=== PATIENT | female | born 2000 | race African-American/Black ===

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

== ENCOUNTER → 2018-04-10 | Outpatient (CLI) | payer OTHER ==
--- NOTE | 2016-04-10 20:58 | US ---
EXAMINATION TYPE: US pelvic complete DATE OF EXAM: 04/10/2016 5:00 PM COMPARISON: no previous CLINICAL HISTORY: US. Pelvic and lower back pain x 2 months, abnormal cycles TECHNIQUE: Transabdominal (TA) Date of LMP: patient unsure EXAM MEASUREMENTS: Uterus: 6.5 x 2.3 x 3.4cm Endometrial Stripe: 0.3cm Right Ovary: 2.6 x 2.9 x 1.6cm Left Ovary: 2.5 x 2.2 x 1.4cm FINDINGS: 1. Uterus: wnl 2. Endometrium: appears wnl 3. Right Ovary: wnl 4. Left Ovary: wnl 5. Bilateral Adnexa: wnl 6. Posterior cul-de-sac: small amount of free fluid seen IMPRESSION: There is a trace amount of free fluid in the cul-de-sac that is probably physiologic. No adnexal mass. Normal uterus and endometrium. Normal Values: Uterine Length: < 10cm Endometrium: Proliferative (Day 6 ? 14): 4 ? 6mm Secretory (Day 15 ? 28): 7 ? 14mm Post Menopausal (and not symptomatic): up to 8mm Post Menopausal (with vaginal bleeding): upper limits <5mm Post Menopausal with HRT: upper limits 8 - 15mm Post Menopausal with tamoxifen: < 6mm (although 50% of those receiving tamoxifen have been reported t o have thickness >8mm)
== END ==
LOC: RADUSWWP 17:00
PROVIDERS: ATTEND Obstetrics & Gynecology
DX: R10.2 Pelvic and perineal pain (principal)
CPT/HCPCS: 76856

== ENCOUNTER 2018-08-10 17:42 | Outpatient (CLI) | payer OTHER ==
[2018-08-10 18:14] LABS: Appearance,Urine Cloudy (Clear); Bacteria,Urine Rare /hpf; Bilirubin,Urine Negative (Negative); Blood,Urine Negative (Negative); Color,Urine Yellow; Glucose,Urine (UA) Negative (Negative); Ketones,Urine Trace (Negative); Leukocyte Esterase,Urine Small (Negative); Mucus,Urine Many /hpf; Nitrite,Urine Negative (Negative); PH, Urine 6.5 (5.0-8.0); Protein,Urine 1+ (Negative); RBC,Urine 3 /hpf (0-5); Specific Gravity,Urine 1.033 (1.001-1.035); Squamous Epithelial Cell,Urine 7 /hpf (0-4); WBC,Urine 3 /hpf (0-5)
[2018-08-10 18:34] VITALS: BP 125/78; PULSE 92; RESP 15; TEMP 97.2
--- NOTE | 2018-08-11 09:12 | P.MSEPDOC ---
Presenting Problems - Arrival Data Date of Arrival on Unit: 08/10/18 Time of Arrival on Unit: 17:48 Mode of Transport: Wheelchair - Complaint OB-Reason for Admission/Chief Complaint: Pain Medical History - Information : 2 Para: 1 Term: 1 : 0 Abortions: Spontaneous or Elective: 0 Number of Living Children: 1 - Gestational Age Gestational Age by RADHA (wks/days): 36 Weeks and 1 Days Review of Systems - Review of Systems Constitutional: No problems Breast: No problems ENT: No problems Cardiovascular: No problems Respiratory: No problems Gastrointestinal: No problems Genitourinary: No problems Musculoskeletal: No problems Neurological: No problems Skin: No problems Vital Signs - Temperature Temperature: 97.2 F Temperature Source: Temporal Artery Scan - Pulse Brachial Pulse Rate: 92 Pulse Assessment Method: Automatic Cuff - Respirations Respiratory Rate: 15 Oxygen Delivery Method: Room Air O2 Sat by Pulse Oximetry: 100 - Blood Pressure Right Arm Sitting Blood Pressure: 125/78 Blood Pressure Mean: 93 Blood Pressure Source: Automatic Cuff Medical Screen Scoring (Pre) - Cervical Exam Dilation: 0 cm = 0 Membranes: Intact - Uterine Contractions Frequency: > 5 minutes apart = 1 Duration: N/A Intensity: N/A - Maternal Vital Signs Maternal Temperature: N/A Maternal Blood Pressure: N/A Signs of Preeclampsia: N/A Maternal Respirations: N/A - Pain Assessment Pain Location and Character: Abdomen Pain Scale Used: Numeric (1 - 10) Pain Intensity: 6 Pain Management Goal: 4 Pain Description: *Acute Pain Frequency: Intermittent Pain Duration Units: Hours Pain Behavior: Vocalization Pain Aggravating Factors: Activity, Position, Standing, Walking Pharmacological Interventions: PRN Medication Non-Pharmacological Interventions: Darkened Room, Inactivity, Position/Reposition, Reduce Environmental Stimuli, Relaxation Technique, Sitting - Maternal Trauma Maternal Trauma: N/A - Assessment Baseline FHR: 155 Heart Rate - NICHD Category: Category I (Normal) = 0 NST: Reactive Position: N/A Station: N/A - Total Score Total Score (Pre): 1 - Level of Risk Level of Risk: Low (0-5) Physician Notification (Pre) - Physician Notified Physician Notified Date: 08/10/18 Physician Notified Time: 18:20 Spoke With: Dr Bravo New Order Received: Yes - Notification Comment Comment: pt here with c/o contx and pelvic pressure. u/a results read to OB, orders for C&S. Rare contx noted, cervix closed and reactive NST. pt may go home and f/u with Dr Smith on Saturday per t.o. Dr Bravo Disposition - Disposition OB Disposition: Triage, Discharge to home, Written follow up instructions reviewed Discharge Date: 08/10/18 Discharge Time: 18:34 I agree with the RN Medical Screening Exam: Yes Risk & Benefit of care provided described in d/c instruction: Yes Diagnosis: FALSE LABOR BEFORE 37 COMPLETED WEEKS OF GEST, THIRD TRI
== END 2018-08-10 18:35 | disposition home or self-care (01) ==
LOC: FBPOP 17:42
PROVIDERS: ATTEND Obstetrics & Gynecology
DX: O47.03 False labor before 37 completed weeks of gestation, third trimester (principal); Z3A.36 36 weeks gestation of pregnancy
CPT/HCPCS: 59025; 81001; 87086; G0463; 99213

== ENCOUNTER 2018-08-31 13:20 | Inpatient (IN) | payer OTHER ==
[2018-08-31] MEDS ORDERED: TERBUTALINE 1 MG/ML VIAL SQ PRN (15:08)
[2018-08-31] MEDS ORDERED: LIDOCAINE 0.5% (PF) 5 MG/ML (50 ML SDV) SQ PRN (15:08)
[2018-08-31] MEDS ORDERED: CARBOPROST TROMETHAMINE 250 MCG/ML 1 ML AMP IM PRN (15:08)
[2018-08-31] MEDS ORDERED: OXYTOCIN 10 UNIT/ML 1 ML VIAL IM PRN (15:08)
[2018-08-31] MEDS ORDERED: METHYLERGONOVINE 0.2 MG/ML 1 ML AMP IM PRN (15:08)
[2018-08-31] MEDS ORDERED: OXYTOCIN 30 UNITS/500 ML NS 30 UNIT in SALINE 1 500ML.BAG IV SCH (15:15)
[2018-08-31] MEDS: LACTATED RINGERS 1,000 ML IV SCH ×2 (15:15→18:20)
[2018-08-31] MEDS ORDERED: BUTORPHANOL 1 MG/ML 1 ML VIAL IV PRN (15:23)
[2018-08-31 15:42] VITALS: BMI 31.6
[2018-08-31 15:44] LABS: Basophils # (A) 0.1 k/uL (0-0.2); Basophils % (A) 0 %; Eosinophils # (A) 0.1 k/uL (0-0.7); Eosinophils % (A) 1 %; HCT 35.9 % (34.0-46.0); HGB 11.7 gm/dL (11.4-16.0); Lymphocytes # (A) 1.9 k/uL (1.0-4.8); Lymphocytes % (A) 16 %; MCH 29.9 pg (25.0-35.0); MCHC 32.7 g/dL (31.0-37.0); MCV 91.5 fL (80.0-100.0); Mean Platelet Volume 7.8; Monocytes # (A) 0.4 k/uL (0-1.0); Monocytes % (A) 4 %; Neutrophils # (A) 9.3 k/uL (1.3-7.7); Neutrophils % (A) 78 %; Platelet Count 389 k/uL (150-450); RBC 3.92 m/uL (3.80-5.40); RDW 15.5 % (11.5-15.5); WBC 11.9 k/uL (4.0-11.0)
--- NOTE | 2018-08-31 16:14 | P.HPOB ---
History of Present Illness H&P Date: 08/31/18 Chief Complaint: Contractions This is a 18-year-old female 2 para 1 with an estimated date of confinement of 09/06/2018, estimated gestational age of 39 and one sevenths weeks, who presents to labor and delivery with complaints of contractions since yesterday evening. They have become stronger and more regular. care has been with Dr. Smith and has been essentially uncomplicated per patient. Upon arrival to triage there was difficulty in obtaining the heart rate and once it was obtained it would alternate between 140-150 with good variability to 70s with a break in between. Contractions were irregular approximately every 2-6 minutes. She did not have any other episodes of this arrhythmia diagnosed during her . She denies any excessive caffeine. She has used lotion on her abdomen with China butter. labs: GC/chlamydia-negative Hepatitis B surface antigen-negative RPR-nonreactive Rubella-immune Blood type-O+ Antibody screen-negative Hemoglobin-11.3 Hemoglobin electrophoresis-normal Random glucose-72 Obstetrical ultrasound-normal anatomy with low lying placenta on 17 week scan, resolved by 32 week scan One hour Glucola-113 Group B streptococcus-negative Obstetrical history: History of 1 vaginal delivery at term with no complications. Review of Systems Constitutional: Denies chills, Denies fever Eyes: denies blurred vision, denies pain Ears, nose, mouth and throat: Denies headache, Denies sore throat Cardiovascular: Denies chest pain, Denies shortness of breath Respiratory: Denies cough Gastrointestinal: Reports abdominal pain (Contractions) Genitourinary: Reports pelvic pain, Reports Musculoskeletal: Reports loss of height Integumentary: Denies pruritus, Denies rash Neurological: Denies numbness, Denies weakness Past Medical History Past Medical History: No Reported History History of Any Multi-Drug Resistant Organisms: None Reported Past Surgical History: No Surgical Hx Reported Past Anesthesia/Blood Transfusion Reactions: No Reported Reaction Past Psychological History: No Psychological Hx Reported Smoking Status: Never smoker Past Alcohol Use History: None Reported Past Drug Use History: None Reported - Past Family History Mother Family Medical History: No Reported History Medications and Allergies Home Medications Medication Instructions Recorded Confirmed Type No Known Home Medications 08/31/18 08/31/18 History Allergies Allergy/AdvReac Type Severity Reaction Status Date / Time No Known Allergies Allergy Verified 03/06/18 10:58 Exam Osteopathic Statement: *. No significant issues noted on an osteopathic structural exam other than those noted in the History and Physical/Consult. Vital Signs Temp Pulse Resp BP Pulse Ox 08/31/18 15:36 97.5 F L 102 H 18 126/79 08/31/18 14:22 97.6 F 103 H 16 126/79 98 Intake and Output 08/31/18 08/31/18 08/31/18 06:59 14:59 22:59 Other: Weight 73.482 kg HEENT: Within normal limits Heart: Regular rate and rhythm Lungs: Clear to auscultation bilaterally Abdomen: Cervix: 4 cm/70%/-2 station. Artificial rupture membranes is carried out with clear fluid noted. heart tones: 140s to 150s with moderate variability with periods of time that the heartbeat abruptly drops to 70s with minimal variability. scalp electrode is placed in this does improve the heart rate to 140-150 with moderate variability Contractions: Every 2-6 minutes Extremities: Negative Homans Results Result Diagrams: 08/31/18 15:15 Abnormal Lab Results - Last 24 Hours (Table) 08/31/18 Range/Units 15:15 WBC 11.9 H (4.0-11.0) k/uL Neutrophils # 9.3 H (1.3-7.7) k/uL Assessment and Plan (1) 39 weeks gestation of Current Visit: Yes Status: Acute Code(s): Z3A.39 - 39 WEEKS GESTATION OF SNOMED Code(s): 11670640 (2) arrhythmia affecting , antepartum Current Visit: Yes Status: Acute Code(s): O36.8390 - MATERN CARE FOR ABNLT FETL HRT RATE OR RHYM, UNSP TRI, UNSP SNOMED Code(s): 54253941 Plan: Admission for early labor. Artificial rupture membranes is carried out with clear fluid noted and scalp electrode is applied. heart tones have been better monitored with the scalpel electrode in place. Epidural anesthesia when desired. Oxytocin augmentation of labor. Patient is aware that if we are unable to monitor heart tones adequately, this may necessitate a section at that time. Will monitor closely. Pediatrics is aware.
[2018-08-31] MEDS ORDERED: ROPIVACAINE 100 MG, fentaNYL (PF) 200 MCG in SODIUM CHLORIDE 0.9% 76 ML EPIDURAL ONE (18:22)
--- NOTE | 2018-08-31 22:10 | P.PROBDLV ---
Vaginal Delivery Note - . Vaginal Delivery Note: The patient progressed to complete dilation after oxytocin augmentation of labor and artificial rupture membranes with clear fluid noted. She did have a scalpel electrode most of the labor that did show moderate variability and occasional variable decelerations. Once reaching complete, she began pushing. 's head came to a crown. With one further push, the 's head delivered across the perineum and a left occiput anterior like followed by the anterior shoulder. Nose and mouth were bulb suctioned at the perineum. With one further push, the remainder the infant easily delivered and was placed on mother's abdomen. Cord was clamped and cut and infant was taken to warmer for evaluation. A viable female was noted with scores of 8 at 1 minute and 9 at 5 minutes. Infant weight is pending at this time. Placenta delivered shortly thereafter, intact, with a three-vessel cord. Uterus contracted well after oxytocin was given and uterine massage was carried out. Inspection of the perineum revealed no perineal lacerations. Estimated blood loss is approximately 150 mL's. Both mother and infant are in stable condition.
[2018-08-31] MEDS ORDERED: diphenhydrAMINE 50 MG CAP PO PRN (22:22)
[2018-08-31] MEDS ORDERED: ZOLPIDEM 5 MG TAB PO PRN (22:22)
[2018-08-31] MEDS ORDERED: OXYTOCIN 20 UNITS/1000 ML NS 1,000 ML IV SCH (22:22)
[2018-08-31] MEDS ORDERED: BENZOCAINE/MENTHOL SPRAY 1 GM/SPRAY AEROSOL TOPICAL PRN (22:22)
[2018-08-31] MEDS ORDERED: WITCH HAZEL 1 EACH MED..PAD TOPICAL PRN (22:22)
[2018-08-31] MEDS ORDERED: diphenhydrAMINE 25 MG CAP PO PRN (22:22)
[2018-08-31] MEDS ORDERED: diphenhydrAMINE 50 MG/ML 1 ML VIAL IVP PRN ×2 (22:22)
[2018-08-31] MEDS ORDERED: HYDROCORTISONE 2.5% RECTAL CREAM 30 GM TUBE RECTAL PRN (22:22)
[2018-08-31] MEDS ORDERED: LANOLIN CREAM 5 GM TUBE TOPICAL PRN (22:22)
[2018-08-31] MEDS ORDERED: SIMETHICONE 80 MG CHEWABLE PO PRN (22:22)
[2018-09-01] MEDS: IBUPROFEN 600 MG TAB PO PRN ×4 (00:47→19:24)
[2018-09-01] MEDS: SENNOSIDES-DOCUSATE SODIUM 1 EACH TAB PO SCH ×3 (02:23→19:24)
[2018-09-01] MEDS: ACETAMINOPHEN TAB 325 MG TAB PO PRN ×2 (06:04→12:23)
[2018-09-01 07:14] LABS: Basophils % (A) 0 %; Eosinophils # (A) 0.3 k/uL (0-0.7); Eosinophils % (A) 2 %; HGB 10.5 gm/dL (11.4-16.0); Lymphocytes # (A) 2.4 k/uL (1.0-4.8); Lymphocytes % (A) 16 %; MCH 29.4 pg (25.0-35.0); MCHC 31.9 g/dL (31.0-37.0); MCV 92.2 fL (80.0-100.0); Mean Platelet Volume 7.1; Monocytes # (A) 0.8 k/uL (0-1.0); Monocytes % (A) 6 %; Neutrophils # (A) 10.9 k/uL (1.3-7.7); Neutrophils % (A) 74 %; Platelet Count 343 k/uL (150-450); RBC 3.58 m/uL (3.80-5.40); RDW 15.6 % (11.5-15.5); WBC 14.7 k/uL (4.0-11.0)
--- NOTE | 2018-09-01 08:36 | P.PNOBGVD ---
Subjective - Subjective Principal diagnosis: day 1 Interval history: Patient is doing very well day 1. She is ambulating, voiding and tolerating her diet. She voices no complaints. Vital signs are stable and afebrile. Baby is in special care nursery due to intermittent bradycardia Patient reports: Reports appetite normal, Reports voiding normally, Reports pain well controlled, Reports ambulating normally : in NICU Objective - Latest Vital Signs Latest vital signs: Vital Signs Temp Pulse Resp BP Pulse Ox 09/01/18 03:01 97.3 F L 65 16 128/57 09/01/18 00:08 78 16 115/54 08/31/18 23:38 98.4 F 76 18 120/58 08/31/18 23:08 98.3 F 79 18 106/52 08/31/18 22:53 74 16 110/56 08/31/18 22:38 86 18 111/55 08/31/18 22:23 79 18 118/58 08/31/18 22:08 97.6 F 86 18 121/59 08/31/18 15:36 97.5 F L 102 H 18 126/79 08/31/18 14:22 97.6 F 103 H 16 126/79 98 Intake and Output 08/31/18 09/01/18 09/01/18 22:59 06:59 14:59 Intake Total 1999 1720 Output Total 100 Balance 1999 1620 Intake: Intake, IV Titration 1999 1000 Amount Lactated Ringers 1,000 ml 2000 @ 125 mls/hr IV .Q8H JOHN PAUL Rx#:[id number] Oxytocin 20 Units/1000 ml 1000 Ns 1,000 ml @ Per Protocol IV .Q0M JOHN PAUL Rx#: [id number] Oral 720 Output: Urine 100 Other: # Voids 100 1 - Exam Lungs: bilateral: normal Chest: Normal S1, Normal S2 Extremities: Present: normal Abdomen: Present: normal appearance, soft Uterus: Present: normal, firm - Labs Labs: Abnormal Lab Results - Last 24 Hours (Table) 08/31/18 09/01/18 Range/Units 15:15 07:02 WBC 11.9 H 14.7 H (4.0-11.0) k/uL RBC 3.58 L (3.80-5.40) m/uL Hgb 10.5 L (11.4-16.0) gm/dL Hct 33.0 L (34.0-46.0) % RDW 15.6 H (11.5-15.5) % Neutrophils # 9.3 H 10.9 H (1.3-7.7) k/uL
[2018-09-01] MEDS: HYDROcodone/APAP 5-325MG 1 EACH TAB PO PRN ×2 (15:52→21:05)
[2018-09-02] MEDS: HYDROcodone/APAP 5-325MG 1 EACH TAB PO PRN ×3 (03:00→12:38)
[2018-09-02] MEDS: IBUPROFEN 600 MG TAB PO PRN (06:31)
[2018-09-02 08:59] VITALS: BP 116/68; PULSE 68; RESP 18; TEMP 97.9
--- NOTE | 2018-09-02 09:07 | P.DS ---
Providers Date of admission: 08/31/18 14:51 Expected date of discharge: 09/02/18 Attending physician: Don Smith Primary care physician: Stated None Hospital Course: Patient is doing very well post R day 2. She is involuting, voiding and tolerating her diet. She voices no complaints and requests discharged home. Vital signs are stable and afebrile. Heart regular, lungs clear, extremities are without pain. Abdomen is soft uterus is firm and lochia is reported to be light. Assessment day 2. Plan discharged home follow up with me in 6 weeks. Discharge instructions were thoroughly reviewed all questions are answered for her prior to her discharge and a prescription for Motrin was folded to her pharmacy. Patient Condition at Discharge: Good Plan - Discharge Summary New Discharge Prescriptions: New Ibuprofen [Motrin] 600 mg PO Q6HR PRN #30 tab PRN Reason: Pain Discharge Medication List Ibuprofen [Motrin] 600 mg PO Q6HR PRN #30 tab 09/02/18 [Rx] Follow up Appointment(s)/Referral(s): Don Smith DO [Doctor of Osteopathic Medicine] - 6 Weeks Activity/Diet/Wound Care/Special Instructions: No heavy lifting, limit stairs and driving, and pelvic rest. If any high temperatures, heavy bleeding, or severe pain call my office Discharge Disposition: HOME SELF-CARE
[2018-09-02] MEDS: SENNOSIDES-DOCUSATE SODIUM 1 EACH TAB PO SCH (09:18)
== END 2018-09-02 12:43 | disposition home or self-care (01) | DRG 807 ==
LOC: FBPOP 13:20 → 4FBP 14:51
PROVIDERS: ADMIT Obstetrics & Gynecology; ATTEND Obstetrics & Gynecology
PROC: 10E0XZZ Delivery of Products of Conception, External Approach (ICD-10-PCS; principal; 2018-08-31)
PROC: 00HU33Z Insertion of Infusion Device into Spinal Canal, Percutaneous Approach (ICD-10-PCS; 2018-08-31)
PROC: 3E0R3BZ Introduction of Anesthetic Agent into Spinal Canal, Percutaneous Approach (ICD-10-PCS; 2018-08-31)
PROC: 4A1H7FZ Monitoring of Products of Conception, Cardiac Rhythm, Via Natural or Artificial Opening (ICD-10-PCS; 2018-08-31)
PROC: 10H073Z Insertion of Monitoring Electrode into Products of Conception, Via Natural or Artificial Opening (ICD-10-PCS; 2018-08-31)
DX: O76 Abnormality in fetal heart rate and rhythm complicating labor and delivery (principal); Z37.0 Single live birth; Z3A.39 39 weeks gestation of pregnancy
CPT/HCPCS: 59025; 85025; 86850; 86900; 86901; 99213

== ENCOUNTER 2019-10-25 17:42 | Emergency (ER) | payer OTHER ==
[2019-10-25 17:45] VITALS: BP 83/65; PULSE 81; RESP 18; TEMP 100.3
--- NOTE | 2019-10-25 17:58 | ED ---
Fever HPI - General Chief Complaint: Fever Stated Complaint: Body Aches Time Seen by Provider: 10/25/19 17:55 Source: patient Mode of arrival: ambulatory Limitations: no limitations - History of Present Illness Initial Comments: Patient is 19-year-old female presenting to emergency with chief complaint of body aches. Patient states symptoms began approximately 2 days ago. Patient reports generalized body aches without any alleviating or aggravating factors. Patient states she has been taking Tylenol which helped improve somewhat symptoms. Patient denies any rhinorrhea, sore throat, otalgia, cough, chest pain, shortness of breath. States she did have chills but no fevers at home. Denies any nausea, vomiting, diarrhea or abdominal pain. Denies direct exposure to any known Covid patient. Denies urinary or vaginal symptoms. Denies hematuria, hematochezia melena. - Related Data Previous Rx's Medication Instructions Recorded Ibuprofen [Motrin] 600 mg PO Q6HR PRN #30 tab 09/02/18 Allergies Allergy/AdvReac Type Severity Reaction Status Date / Time No Known Allergies Allergy Verified 10/25/19 17:45 Review of Systems ROS Statement: Those systems with pertinent positive or pertinent negative responses have been documented in the HPI. ROS Other: All systems not noted in ROS Statement are negative. Past Medical History Past Medical History: No Reported History Additional Past Medical History / Comment(s): Obstetric history: This is her first . She's been seeing Dr. Smith since 8 weeks gestation. Blood type O+, antibodies negative, rubella immune, hepatitis B negative, RPR negative, HIV negative. Normal 1 hour glucose tolerance test. She did have a normal anatomy scan but had a marginal previa, this had resolved by 28 weeks. GBS negative. History of Any Multi-Drug Resistant Organisms: None Reported Past Surgical History: No Surgical Hx Reported Past Anesthesia/Blood Transfusion Reactions: No Reported Reaction Past Psychological History: No Psychological Hx Reported Smoking Status: Never smoker Past Alcohol Use History: None Reported Past Drug Use History: None Reported - Past Family History Mother Family Medical History: No Reported History General Exam Limitations: no limitations General appearance: alert, in no apparent distress Head exam: Present: atraumatic, normocephalic, normal inspection Eye exam: Present: normal appearance, PERRL, EOMI Pupils: Present: normal accommodation ENT exam: Present: normal exam, normal oropharynx, mucous membranes moist Neck exam: Present: normal inspection, full ROM Respiratory exam: Present: normal lung sounds bilaterally. Absent: respiratory distress, wheezes Cardiovascular Exam: Present: regular rate, normal rhythm, normal heart sounds GI/Abdominal exam: Present: soft. Absent: distended, tenderness, guarding, rebound Extremities exam: Present: normal inspection, full ROM, normal capillary refill, other (+2 ulnar and radial pulses bilaterally.). Absent: tenderness Back exam: Present: normal inspection, full ROM. Absent: tenderness Neurological exam: Present: alert, oriented X3, normal gait Psychiatric exam: Present: normal affect, normal mood Skin exam: Present: warm, dry, intact, normal color Course Vital Signs 10/25/19 10/25/19 17:43 18:59 Temperature 100.3 F H 100.3 F H Pulse Rate 81 81 Respiratory 18 18 Rate Blood Pressure 83/65 83/65 O2 Sat by Pulse 100 100 Oximetry Medical Decision Making - Medical Decision Making History 19-year-old female presenting to the emergency room with a chief complaint of body aches. Patient does appear to have a borderline fever of 100.3 in the emergency department. Patient given Tylenol in the ED. Chest x- ray is unremarkable. X-rays unremarkable. Covid test pending. Patient advised to self isolate until she receives the final results of her tests. Patient advised to only use Tylenol until the results are received. Patient does use a vape. I counseled the patient for smoking cessation for greater than 3 minutes. Patient is otherwise feeling well and is ready go home. Return parameters were thoroughly discussed with patient was understanding and agreeable. Case discussed with physician. - Lab Data Lab Results 10/25/19 Range/Units 18:28 Coronavirus (PCR) Not Detected (Not Detected) Disposition Clinical Impression: Generalized body aches, Fever Disposition: HOME SELF-CARE Condition: Stable Instructions (If sedation given, give patient instructions): Fever in Adults (ED) Additional Instructions: Take Tylenol for fever every 4-6 hours. Self isolate until you receive results for covert testing. Return to emergency department if symptoms worsen. Is patient prescribed a controlled substance at d/c from ED?: No Referrals: None,Stated [Primary Care Provider] - 1-2 days Time of Disposition: 18:51
[2019-10-25] MEDS ORDERED: ACETAMINOPHEN TAB 500 MG TAB PO STA (18:18)
--- NOTE | 2019-10-25 18:39 | XR ---
EXAMINATION TYPE: XR chest 2V DATE OF EXAM: 10/25/2019 COMPARISON: NONE HISTORY: Fever TECHNIQUE: 2 views FINDINGS: Heart and mediastinum are normal. Lungs are clear. Diaphragm is normal. Bony thorax appears normal. IMPRESSION: Normal chest.
== END 2019-10-25 18:59 | disposition home or self-care (01) ==
LOC: EC 17:42
DX: R52 Pain, unspecified (principal); R50.9 Fever, unspecified; Z20.828 Contact with and (suspected) exposure to other viral communicable diseases
CPT/HCPCS: 99283 ×2; 99406 ×2; 71046; U0003

== ENCOUNTER 2020-02-28 11:04 | Emergency (ER) | payer OTHER ==
[2020-02-28 11:16] VITALS: BP 163/90; PULSE 84; RESP 18; TEMP 98.6
--- NOTE | 2020-02-28 11:42 | ED ---
General Adult HPI - General Chief complaint: Recheck/Abnormal Lab/Rx Stated complaint: COVID symptoms Time Seen by Provider: 02/28/20 11:08 Source: patient, RN notes reviewed Mode of arrival: ambulatory Limitations: no limitations - History of Present Illness Initial comments: 19-year-old female presents emergency Department with chief complaint of requ esting coronavirus testing. Patient states she's had a mild runny nose and cough no fever or chills no bodyaches no difficulty breathing or chest pain no other complaints. Patient reportedly had an exposure. Patient has no significant past medical history. - Related Data Previous Rx's Medication Instructions Recorded Ibuprofen [Motrin] 600 mg PO Q6HR PRN #30 tab 09/02/18 Allergies Allergy/AdvReac Type Severity Reaction Status Date / Time No Known Allergies Allergy Verified 02/28/20 11:16 Review of Systems ROS Statement: Those systems with pertinent positive or pertinent negative responses have been documented in the HPI. ROS Other: All systems not noted in ROS Statement are negative. Past Medical History Past Medical History: No Reported History Additional Past Medical History / Comment(s): Obstetric history: This is her first . She's been seeing Dr. Smith since 8 weeks gestation. Blood type O+, antibodies negative, rubella immune, hepatitis B negative, RPR negative, HIV negative. Normal 1 hour glucose tolerance test. She did have a normal anatomy scan but had a marginal previa, this had resolved by 28 weeks. GBS negative. History of Any Multi-Drug Resistant Organisms: None Reported Past Surgical History: No Surgical Hx Reported Past Anesthesia/Blood Transfusion Reactions: No Reported Reaction Past Psychological History: No Psychological Hx Reported Smoking Status: Vaper Past Alcohol Use History: None Reported Past Drug Use History: Marijuana - Past Family History Mother Family Medical History: No Reported History General Exam Limitations: no limitations General appearance: alert, in no apparent distress Head exam: Present: atraumatic, normocephalic, normal inspection Eye exam: Present: normal appearance, PERRL, EOMI. Absent: scleral icterus, conjunctival injection, periorbital swelling ENT exam: Present: normal exam, normal oropharynx, mucous membranes moist Neck exam: Present: normal inspection, full ROM. Absent: tenderness, men ingismus, lymphadenopathy Respiratory exam: Present: normal lung sounds bilaterally. Absent: respiratory distress, wheezes, rales, rhonchi, stridor Cardiovascular Exam: Present: regular rate, normal rhythm, normal heart sounds. Absent: systolic murmur, diastolic murmur, rubs, gallop, clicks GI/Abdominal exam: Present: soft, normal bowel sounds. Absent: distended, tenderness, guarding, rebound, rigid Neurological exam: Present: alert, oriented X3, CN II-XII intact, reflexes normal. Absent: motor sensory deficit Skin exam: Present: warm, dry, intact, normal color. Absent: rash Course Vital Signs 02/28/20 02/28/20 11:14 12:00 Temperature 98.6 F 98.6 F Pulse Rate 84 84 Respiratory 18 18 Rate Blood Pressure 163/90 163/90 O2 Sat by Pulse 97 97 Oximetry Medical Decision Making - Medical Decision Making Patient has pending results. Patient will be discharged in stable condition return parameters were discussed. - Lab Data Lab Results 02/28/20 Range/Units 11:37 Coronavirus (PCR) Not Detected (Not Detectd) Disposition Clinical Impression: Encounter for laboratory testing for COVID-19 virus Disposition: HOME SELF-CARE Condition: Stable Additional Instructions: Please return to the Emergency Department if symptoms worsen or any other concerns. Is patient prescribed a controlled substance at d/c from ED?: No Referrals: None,Stated [Primary Care Provider] - 1-2 days Time of Disposition: 13:43
== END 2020-02-28 12:00 | disposition home or self-care (01) ==
LOC: EC 11:04
DX: Z03.818 Encounter for observation for suspected exposure to other biological agents ruled out (principal); Z20.828 Contact with and (suspected) exposure to other viral communicable diseases; F17.290 Nicotine dependence, other tobacco product, uncomplicated
CPT/HCPCS: 87635; 99283

== ENCOUNTER 2020-06-15 18:45 | Emergency (ER) | payer OTHER ==
[2020-06-15] MEDS ORDERED: ONDANSETRON 4 MG/2 ML VIAL IVP STA (19:06)
[2020-06-15] MEDS ORDERED: SODIUM CHLORIDE 0.9% 1,000 ML IV STA (19:06)
[2020-06-15] MEDS ORDERED: KETOROLAC 15 MG/ML 1 ML VIAL IVP STA (19:06)
--- NOTE | 2020-06-15 19:16 | ED ---
Abdominal Pain HPI - General Chief Complaint: Abdominal Pain Stated Complaint: Side pain Time Seen by Provider: 06/15/20 19:01 Source: patient Mode of arrival: ambulatory Limitations: no limitations - History of Present Illness Initial Comments: Patient is a 20-year-old female presenting to the emergency Department with complaints of bilateral lower abdominal pain started yesterday. She states it was mild at first, she took some ibuprofen which did help. Patient states when she woke up this morning she feels like the pain is getting worse. She de scribes it as on the lower part of her abdomen, on both sides. There is no radiation. Pain is 5/10, she is comfortable, playing on her phone during questioning. She denies any abdominal surgeries. She does admit to some nausea, no vomiting or diarrhea. She does not believe she is as she is on control, she has irregular menstrual cycles. She denies any chest pain or shortness of breath, no fever or chills. She denies any pertinent past medical history. She did not take anything for pain today. She has no further complaints. Upon arrival to the ER, her vitals are stable. - Related Data Home Medications Medication Instructions Recorded Confirmed No Known Home Medications 06/15/20 06/15/20 Allergies Allergy/AdvReac Type Severity Reaction Status Date / Time No Known Allergies Allergy Verified 06/15/20 20:31 Review of Systems ROS Statement: Those systems with pertinent positive or pertinent negative responses have been documented in the HPI. ROS Other: All systems not noted in ROS Statement are negative. Past Medical History Past Medical History: No Reported History Additional Past Medical History / Comment(s): Obstetric history: This is her first . She's been seeing Dr. Smith since 8 weeks gestation. Blood type O+, antibodies negative, rubella immune, hepatitis B negative, RPR negative, HIV negative. Normal 1 hour glucose tolerance test. She did have a normal anatomy scan but had a marginal previa, this had resolved by 28 weeks. GBS negative. History of Any Multi-Drug Resistant Organisms: None Reported Past Surgical History: No Surgical Hx Reported Past Anesthesia/Blood Transfusion Reactions: No Reported Reaction Past Psychological History: Anxiety Smoking Status: Vaper Past Alcohol Use History: None Reported Past Drug Use History: None Reported, Marijuana - Past Family History Mother Family Medical History: No Reported History General Exam - General Exam Comments Initial Comments: GENERAL: Patient is well-developed and well-nourished. Patient is nontoxic and in no acute distress. HEAD: Atraumatic, normocephalic. EYES: Pupils equal round and reactive to light, extraocular movements intact, sclera anicteric, conjunctiva are normal. Eyelids were unremarkable. ENT: TMs normal, nares patent, oropharynx clear without exudates. Moist mucous membranes. NECK: Normal range of motion, supple without lymphadenopathy or JVD. LUNGS: Unlabored respirations. Breath sounds clear to auscultation bilaterally and equal. No wheezes rales or rhonchi. HEART: Regular rate and rhythm without murmurs, rubs or gallops. ABDOMEN: Mild tenderness to palpation bilateral lower quadrants, and suprapubic. Soft, normoactive bowel sounds. No guarding, no rebound. No masses appreciated. : Deferred MUSCULOSKELETAL: Normal extremities with adequate strength and normal range of motion, no pitting or edema. No clubbing or cyanosis. NEUROLOGICAL: Patient is alert and oriented x 3. Motor and sensory are also intact. Cranial nerves II through XII grossly intact. Symmetrical smile. Normal speech, normal gait. PSYCH: Normal mood, normal affect. SKIN: Warm, Dry, normal turgor, no rashes or lesions noted. Limitations: no limitations Course Vital Signs 06/15/20 06/15/20 18:46 20:00 Temperature 99.1 F 97.8 F Pulse Rate 105 H 78 Respiratory 18 20 Rate Blood Pressure 135/84 134/82 O2 Sat by Pulse 100 97 Oximetry Medical Decision Making - Medical Decision Making Patient is a 20-year-old female here for bilateral lower quadrant pain as of yesterday, positive nausea. Vitals are stable, no fevers. Patient's labs are unremarkable, normal white count, normal lactic acid, urine has many squama cells, rare bacteria, urine cultures pending. Urine hCG is negative. She has no symptoms of a UTI. Patient has remained comfortable the ER, she did receive some fluids, Zofran and some Toradol. I discussed with patient that this is most likely her from her menstrual cramps. I will give her some Zofran for any additional nausea. She can follow-up with her regular doctor or MAKEUP SALES ADVISOR. Return parameters were discussed the patient she verbalized understanding. - Lab Data Result diagrams: 06/15/20 19:16 06/15/20 19:16 Lab Results 06/15/20 06/15/20 06/15/20 Range/Units 19:16 19:16 19:16 WBC 8.5 (3.8-10.6) k/uL RBC 4.72 (3.80-5.40) m/uL Hgb 14.5 (11.4-16.0) gm/dL Hct 43.5 (34.0-46.0) % MCV 92.1 (80.0-100.0) fL MCH 30.7 (25.0-35.0) pg MCHC 33.3 (31.0-37.0) g/dL RDW 12.2 (11.5-15.5) % Plt Count 362 (150-450) k/uL MPV 7.1 Neutrophils % 71 % Lymphocytes % 21 % Monocytes % 3 % Eosinophils % 3 % Basophils % 0 % Neutrophils # 6.0 (1.3-7.7) k/uL Lymphocytes # 1.8 (1.0-4.8) k/uL Monocytes # 0.2 (0-1.0) k/uL Eosinophils # 0.3 (0-0.7) k/uL Basophils # 0.0 (0-0.2) k/uL Sodium (137-145) mmol/L Potassium (3.5-5.1) mmol/L Chloride (98-107) mmol/L Carbon Dioxide (22-30) mmol/L Anion Gap mmol/L BUN (7-17) mg/dL Creatinine (0.52-1.04) mg/dL Est GFR (CKD-EPI)AfAm (>60 ml/min/1.73 sqM) Est GFR (CKD-EPI)NonAf (>60 ml/min/1.73 sqM) Glucose (74-99) mg/dL Plasma Lactic Acid Mo (0.7-2.0) mmol/L Calcium (8.4-10.2) mg/dL Total Bilirubin (0.2-1.3) mg/dL AST (14-36) U/L ALT (4-34) U/L Alkaline Phosphatase (38-126) U/L Total Protein (6.3-8.2) g/dL Albumin (3.5-5.0) g/dL Amylase (30-110) U/L Lipase (23-300) U/L Urine Color Light Yellow Urine Appearance Cloudy H (Clear) Urine pH 6.5 (5.0-8.0) Ur Specific [place] 1.022 (1.001-1.035) Urine Protein Trace H (Negative) Urine Glucose (UA) Negative (Negative) Urine Ketones Trace H (Negative) Urine Blood Negative (Negative) Urine Nitrite Negative (Negative) Urine Bilirubin Negative (Negative) Urine Urobilinogen <2.0 (<2.0) mg/dL Ur Leukocyte Esterase Moderate H (Negative) Urine RBC 2 (0-5) /hpf Urine WBC 22 H (0-5) /hpf Ur Squamous Epith Cells 39 H (0-4) /hpf Urine Bacteria Rare H (None) /hpf Urine Mucus Rare H (None) /hpf Urine HCG, Qual Not Detected (Not Detectd) 06/15/20 06/15/20 Range/Units 19:16 19:16 WBC (3.8-10.6) k/uL RBC (3.80-5.40) m/uL Hgb (11.4-16.0) gm/dL Hct (34.0-46.0) % MCV (80.0-100.0) fL MCH (25.0-35.0) pg MCHC (31.0-37.0) g/dL RDW (11.5-15.5) % Plt Count (150-450) k/uL MPV Neutrophils % % Lymphocytes % % Monocytes % % Eosinophils % % Basophils % % Neutrophils # (1.3-7.7) k/uL Lymphocytes # (1.0-4.8) k/uL Monocytes # (0-1.0) k/uL Eosinophils # (0-0.7) k/uL Basophils # (0-0.2) k/uL Sodium 137 (137-145) mmol/L Potassium 4.0 (3.5-5.1) mmol/L Chloride 102 (98-107) mmol/L Carbon Dioxide 25 (22-30) mmol/L Anion Gap 10 mmol/L BUN 13 (7-17) mg/dL Creatinine 0.60 (0.52-1.04) mg/dL Est GFR (CKD-EPI)AfAm >90 (>60 ml/min/1.73 sqM) Est GFR (CKD-EPI)NonAf >90 (>60 ml/min/1.73 sqM) Glucose 112 H (74-99) mg/dL Plasma Lactic Acid Mo 1.0 (0.7-2.0) mmol/L Calcium 9.7 (8.4-10.2) mg/dL Total Bilirubin 0.4 (0.2-1.3) mg/dL AST 39 H (14-36) U/L ALT 34 (4-34) U/L Alkaline Phosphatase 87 (38-126) U/L Total Protein 8.2 (6.3-8.2) g/dL Albumin 4.9 (3.5-5.0) g/dL Amylase 85 (30-110) U/L Lipase 192 (23-300) U/L Urine Color Urine Appearance (Clear) Urine pH (5.0-8.0) Ur Specific [place] (1.001-1.035) Urine Protein (Negative) Urine Glucose (UA) (Negative) Urine Ketones (Negative) Urine Blood (Negative) Urine Nitrite (Negative) Urine Bilirubin (Negative) Urine Urobilinogen (<2.0) mg/dL Ur Leukocyte Esterase (Negative) Urine RBC (0-5) /hpf Urine WBC (0-5) /hpf Ur Squamous Epith Cells (0-4) /hpf Urine Bacteria (None) /hpf Urine Mucus (None) /hpf Urine HCG, Qual (Not Detectd) Disposition Clinical Impression: Lower abdominal pain Disposition: HOME SELF-CARE Condition: Stable Instructions (If sedation given, give patient instructions): Abdominal Pain (ED) Additional Instructions: Please return to the Emergency Department if symptoms worsen or any other concerns. Continue with Tylenol or Motrin for any discomfort. May use Zofran for any additional nausea. Please follow-up with your regular doctor or MAKEUP SALES ADVISOR. Is patient prescribed a controlled substance at d/c from ED?: No Referrals: None,Stated [Primary Care Provider] - 1-2 days
[2020-06-15 19:28] LABS: Basophils % (A) 0 %; Eosinophils # (A) 0.3 k/uL (0-0.7); Eosinophils % (A) 3 %; HCT 43.5 % (34.0-46.0); HGB 14.5 gm/dL (11.4-16.0); Lymphocytes # (A) 1.8 k/uL (1.0-4.8); Lymphocytes % (A) 21 %; MCH 30.7 pg (25.0-35.0); MCHC 33.3 g/dL (31.0-37.0); MCV 92.1 fL (80.0-100.0); Mean Platelet Volume 7.1; Monocytes # (A) 0.2 k/uL (0-1.0); Monocytes % (A) 3 %; Neutrophils % (A) 71 %; Platelet Count 362 k/uL (150-450); RBC 4.72 m/uL (3.80-5.40); RDW 12.2 % (11.5-15.5); WBC 8.5 k/uL (3.8-10.6)
[2020-06-15 19:32] LABS: Appearance,Urine Cloudy (Clear); Bacteria,Urine Rare /hpf; Bilirubin,Urine Negative (Negative); Blood,Urine Negative (Negative); Color,Urine Light Yellow; Glucose,Urine (UA) Negative (Negative); Ketones,Urine Trace (Negative); Leukocyte Esterase,Urine Moderate (Negative); Mucus,Urine Rare /hpf; Nitrite,Urine Negative (Negative); PH, Urine 6.5 (5.0-8.0); Protein,Urine Trace (Negative); RBC,Urine 2 /hpf (0-5); Specific Gravity,Urine 1.022 (1.001-1.035); Squamous Epithelial Cell,Urine 39 /hpf (0-4); Urobilinogen,Urine <2.0 mg/dL (<2.0); WBC,Urine 22 /hpf (0-5)
[2020-06-15 19:34] LABS: ALT 34 U/L (4-34); AST 39 U/L (14-36); African American GFR (CKD) >90 (>60 ml/min/1.73 sqM); Albumin 4.9 g/dL (3.5-5.0); Alkaline Phosphatase 87 U/L (38-126); Amylase 85 U/L (30-110); Anion Gap 10 mmol/L; Blood Urea Nitrogen 13 mg/dL (7-17); Calcium 9.7 mg/dL (8.4-10.2); Carbon Dioxide 25 mmol/L (22-30); Chloride 102 mmol/L (98-107); Glucose 112 mg/dL (74-99); Lipase 192 U/L (23-300); Non-African American GFR(CKD) >90 (>60 ml/min/1.73 sqM); Sodium 137 mmol/L (137-145); Total Bilirubin 0.4 mg/dL (0.2-1.3); Total Protein 8.2 g/dL (6.3-8.2)
--- NOTE | 2020-06-15 20:06 | XR ---
EXAM: Abdomen radiograph. HISTORY: Bilateral flank pain. TECHNIQUE: Upright AP view. COMPARISON: Ultrasound 07/12/2016. FINDINGS: There are nondilated bowel loops with a nonobstructive pattern. No free air. There are no pathologic calcifications. No acute osseous abnormality seen. Left hemipelvic surgical clip seen. IMPRESSION: No acute process.
[2020-06-15] MEDS ORDERED: ONDANSETRON 4 MG ODT STARTER PACK 2 TAB BTL PO STA (20:29)
[2020-06-15 20:37] VITALS: BP 134/82; PULSE 78; RESP 20; TEMP 97.8
== END 2020-06-15 20:37 | disposition home or self-care (01) ==
LOC: EC 18:45
DX: R10.32 Left lower quadrant pain (principal); R10.31 Right lower quadrant pain; R11.0 Nausea; F17.290 Nicotine dependence, other tobacco product, uncomplicated
CPT/HCPCS: 36415; 80053; 82150; 83605; 83690; 85025; 81001; 81025; 87086; 74018; 99284; 96374; 96375; 96361; J2405; J1885; S0119